=== PATIENT | female | born 1940 | race Caucasian/White ===

== ENCOUNTER → 2016-08-28 | Outpatient (CLI) | payer BC ==
[~2016-08-28] MED LIST: ASPI81TA28 PO; CALC600T9 PO; CHOL20005 PO; CLR10 PO; CYAN500T13 PO; ESCI10TA17 PO; FLUT0.0529 INH; IBAN150T7 PO; LOSA50TA6 PO; NTRGSL/4 UT; OMEP10CA2 PO; PRAV20TA PO; TRET0.027 TOP; ZOLP5TAB PO
[2016-08-28 09:40] LABS: BASO % 0.6 %; BASO ABS # 0.03 K/uL (0-0.2); COMPLETE YES; EOS % 2.4 %; HEMATOCRIT 38.8 % (37-47); LYMPH % 23.1 %; LYMPH ABS # 1.08 K/uL (1.2-3.4); MEAN CELL VOLUME 92.6 fL (80-100); MEAN CORPUSCULAR HEMOGLOBIN 30.5 pg (25-34); MEAN PLATELET VOLUME 10.2 fL (7.4-10.4); MONO % 9.6 %; NEUT % 64.3 %; PLATELET COUNT 240 K/uL (130-400); RED BLOOD COUNT 4.19 M/uL (4.2-5.4); WHITE BLOOD COUNT 4.67 K/uL (4.8-10.8)
[2016-08-28 10:10] LABS: BLOOD UREA NITROGEN 19 mg/dl (7-18); BUN/CREATININE RATIO 25.3 (10-20); CALCIUM 9.3 mg/dl (8.5-10.1); CARBON DIOXIDE 31 mmol/L (21-32); CHLORIDE 109 mmol/L (98-107); CHOLESTEROL 164 mg/dl (0-200); CREATININE 0.75 mg/dl (0.60-1.20); GLUCOSE 86 mg/dl (70-99); POTASSIUM 4.3 mmol/L (3.5-5.1); SODIUM 146 mmol/L (136-145)
[2016-08-28 10:13] LABS: CHOLESTEROL/HDL RATIO 2.7; HDL CHOLESTEROL 60 mg/dl; LDL CHOLESTEROL CALCULATED 88 mg/dl; TRIGLYCERIDES 79 mg/dl (0-150); VERY LOW DENSITY LIPOPROT CALC 16 mg/dl
== END | disposition home or self-care (01) ==
LOC: C.LAB1850 08:08
PROVIDERS: ATTEND Internal Medicine
DX: E55.9 Vitamin D deficiency, unspecified (principal); K21.9 Gastro-esophageal reflux disease without esophagitis; E78.5 Hyperlipidemia, unspecified; I10 Essential (primary) hypertension

== ENCOUNTER → 2017-02-07 | Outpatient (CLI) | payer BC ==
--- NOTE | 2017-02-07 11:26 | DIAGNOSTIC IMAGING REPORT ---
LEFT ANKLE MIN 3 VIEWS ROUTINE HISTORY: 76 years-old Female M25.572 Ankle pain, left acute left ankle pain with injury 10 days prior. Initial exam. COMPARISON: None available TECHNIQUE: 3 views of the left ankle. Bones are mildly demineralized. FINDINGS: No acute fracture or dislocation. Moderate spurring involves the plantar surface of the calcaneus. Mild dorsal spurring of the mid foot is noted. Soft tissues are within normal limits without opaque foreign body. Mild soft tissue swelling is noted about the ankle. IMPRESSION: 1. Mild soft tissue swelling about the ankle without acute fracture. 2. Moderate enthesopathy of the plantar calcaneus. The above report was generated using voice recognition software. It may contain grammatical, syntax or spelling errors. Electronically signed by: Solomon Fonseca M.D. 02/07/2017 11:25 AM Dictated Date/Time: 02/07/2017 11:23 AM
== END | disposition home or self-care (01) ==
LOC: C.RAD 11:07
PROVIDERS: ATTEND Internal Medicine
DX: M77.32 Calcaneal spur, left foot (principal); M25.572 Pain in left ankle and joints of left foot

== ENCOUNTER → 2017-02-26 | Outpatient (CLI) | payer BC ==
[2017-02-26 09:36] LABS: BASO % 0.5 %; BASO ABS # 0.02 K/uL (0-0.2); COMPLETE YES; EOS % 2.3 %; HEMATOCRIT 40.2 % (37-47); IG% 0.2 %; LYMPH % 25.5 %; LYMPH ABS # 1.09 K/uL (1.2-3.4); MEAN CELL VOLUME 94.4 fL (80-100); MEAN CORPUSCULAR HEMOGLOBIN 31.5 pg (25-34); MEAN CORPUSCULAR HGB CONC 33.3 g/dl (32-36); MEAN PLATELET VOLUME 10.6 fL (7.4-10.4); MONO % 12.2 %; NEUT % 59.3 %; PLATELET COUNT 212 K/uL (130-400); RED BLOOD COUNT 4.26 M/uL (4.2-5.4); WHITE BLOOD COUNT 4.27 K/uL (4.8-10.8)
[2017-02-26 09:53] LABS: ALT/SGPT 22 U/L (12-78); AST/SGOT 15 U/L (15-37); BLOOD UREA NITROGEN 18 mg/dl (7-18); BUN/CREATININE RATIO 23.3 (10-20); CALCIUM 9.9 mg/dl (8.5-10.1); CARBON DIOXIDE 29 mmol/L (21-32); CHLORIDE 108 mmol/L (98-107); CHOLESTEROL 162 mg/dl (0-200); CREATININE 0.75 mg/dl (0.60-1.20); GLUCOSE 99 mg/dl (70-99); POTASSIUM 4.4 mmol/L (3.5-5.1); SODIUM 141 mmol/L (136-145); TRIGLYCERIDES 57 mg/dl (0-150); VERY LOW DENSITY LIPOPROT CALC 11 mg/dl
[2017-02-26 09:56] LABS: CHOLESTEROL/HDL RATIO 2.5; HDL CHOLESTEROL 66 mg/dl; LDL CHOLESTEROL CALCULATED 85 mg/dl
== END | disposition home or self-care (01) ==
LOC: C.LAB1850 08:20
PROVIDERS: ATTEND Internal Medicine
DX: E78.5 Hyperlipidemia, unspecified (principal); I10 Essential (primary) hypertension; D72.819 Decreased white blood cell count, unspecified

== ENCOUNTER → 2017-03-10 | Outpatient (CLI) | payer BC ==
--- NOTE | 2017-03-11 08:13 | MAMMOGRAPHY REPORT ---
BILATERAL DIGITAL SCREENING MAMMOGRAM WITH CAD: 03/10/2017 CLINICAL HISTORY: Routine screening. Patient has no complaints. TECHNIQUE: Bilateral CC, MLO and left exaggerated lateral CC views were obtained. Current study was also evaluated with a Computer Aided Detection (CAD) system. COMPARISON: Comparison is made to exams dated: 03/04/2016 mammogram, 02/27/2015 mammogram, 02/24/2014 m ammogram, 02/23/2013 mammogram, 02/18/2012 mammogram, and 11/27/2010 mammogram - [facility] enter. BREAST COMPOSITION: There are scattered areas of fibroglandular density in both breasts. FINDINGS: There are stable asymmetries in the left breast. No new suspicious mass, architectural dis tortion or cluster of microcalcifications is seen. IMPRESSION: ACR BI-RADS CATEGORY 1: NEGATIVE There is no mammographic evidence of malignancy. A 1 year screening mammogram is recommended. The pa tient will receive written notification of the results. Approximately 10% of breast cancers are not detected with mammography. A negative mammographic report should not delay biopsy if a clinically suggestive mass is present. Sana Whitman M.D. ay/:03/10/2017 15:52:24 Sheriff'S Officer: Liberty BAIRD(Raoul)([place]vin)([place]), [facility] letter sent: Normal 1/2 BI-RADS Code: ACR BI-RADS Category 1: Negative
== END | disposition home or self-care (01) ==
LOC: C.MAMM 11:21
PROVIDERS: ATTEND Internal Medicine
DX: Z12.31 Encounter for screening mammogram for malignant neoplasm of breast (principal)

== ENCOUNTER → 2017-08-21 | Outpatient (CLI) | payer BC ==
[2017-08-21 09:39] LABS: HEMATOCRIT 37.3 % (37-47); HEMOGLOBIN 12.8 g/dL (12.0-16.0); MEAN CELL VOLUME 91.2 fL (80-100); MEAN CORPUSCULAR HEMOGLOBIN 31.3 pg (25-34); MEAN CORPUSCULAR HGB CONC 34.3 g/dl (32-36); MEAN PLATELET VOLUME 10.1 fL (7.4-10.4); PLATELET COUNT 215 K/uL (130-400); RED CELL DISTRIBUTION WIDTH CV 12.8 % (11.5-14.5); RED CELL DISTRIBUTION WIDTH SD 42.2 fL (36.4-46.3); WHITE BLOOD COUNT 4.31 K/uL (4.8-10.8)
[2017-08-21 10:42] LABS: BLOOD UREA NITROGEN 20 mg/dl (7-18); CARBON DIOXIDE 27 mmol/L (21-32); CREATININE 0.79 mg/dl (0.60-1.20); GLUCOSE 95 mg/dl (70-99); POTASSIUM 4.2 mmol/L (3.5-5.1); SODIUM 141 mmol/L (136-145)
[2017-08-21 10:43] LABS: ALT/SGPT 20 U/L (12-78); AST/SGOT 14 U/L (15-37); CALCIUM 9.8 mg/dl (8.5-10.1)
[2017-08-21 10:46] LABS: CHOLESTEROL 157 mg/dl (0-200); LDL CHOLESTEROL CALCULATED 79 mg/dl
== END | disposition home or self-care (01) ==
LOC: C.LAB1850 08:46
PROVIDERS: ATTEND Internal Medicine
DX: E78.5 Hyperlipidemia, unspecified (principal); D72.819 Decreased white blood cell count, unspecified; E55.9 Vitamin D deficiency, unspecified; N20.0 Calculus of kidney

== ENCOUNTER → 2017-09-21 | Outpatient (CLI) | payer BC ==
--- NOTE | 2017-09-21 11:11 | DIAGNOSTIC IMAGING REPORT ---
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 This most likely represents a mid left ureteral calculus. It measures 6 x 4 mm. Pre-existing small calcification medial and lateral to the sacrum on the left unchanged in the prior study. Bowel pattern is nonobstructive. No major calcifications within the kidneys within limitations of overlying bowel content. IMPRESSION: 1. Interval calcification overlying the mid left ureter most likely representing a ureteral calculus. 2. This measures 6 x 4 mm. The above report was generated using voice recognition software. It may contain grammatical, syntax or spelling errors. Electronically signed by: Rick Mercer M.D. 09/21/2017 11:09 AM Dictated Date/Time: 09/21/2017 11:07 AM
== END | disposition home or self-care (01) ==
LOC: C.RADBC 09-18 12:19
PROVIDERS: ATTEND Urology
DX: N20.0 Calculus of kidney (principal)

== ENCOUNTER → 2017-09-30 | Outpatient (CLI) | payer BC ==
[~2017-09-30] MED LIST changes: +FLUT50SP45; +OMEP-331 PO
--- NOTE | 2017-09-30 15:40 | DIAGNOSTIC IMAGING REPORT ---
EXAMINATION: RENAL ULTRASOUND CLINICAL HISTORY: N20.0 NephrolithiasisULTR COMPARISON STUDY: September 01, 2014 FINDINGS: The right kidney measures 9.6 cm. The left kidney measures 9.9 cm. There is moderate left-sided hydronephrosis. There is an equivocal 5 mm lower pole right renal calculus The left ureteral jet was not visualized. The right ureteral jet was identified. IMPRESSION : 1. Moderate left-sided hydronephrosis. Nonvisualization the left ureteral jet. The findings are consistent with a left ureteral obstruction 2. Equivocal 5 mm lower pole right renal calculus Electronically signed by: Benedict Mccormick M.D. 09/30/2017 3:39 PM Dictated Date/Time: 09/30/2017 3:37 PM
[2017-09-30 16:38] LABS: BASO % 0.3 %; BASO ABS # 0.02 K/uL (0-0.2); EOS % 1.5 %; HEMATOCRIT 36.9 % (37-47); HEMOGLOBIN 12.2 g/dL (12.0-16.0); IG# 0.02 K/uL (0.00-0.02); LYMPH % 20.7 %; LYMPH ABS # 1.39 K/uL (1.2-3.4); MEAN CELL VOLUME 92.7 fL (80-100); MEAN CORPUSCULAR HEMOGLOBIN 30.7 pg (25-34); MEAN CORPUSCULAR HGB CONC 33.1 g/dl (32-36); MEAN PLATELET VOLUME 10.1 fL (7.4-10.4); MONO % 10.6 %; MONO ABS # 0.71 K/uL (0.11-0.59); NEUT % 66.6 %; NEUT ABS # 4.47 K/uL (1.4-6.5); PLATELET COUNT 225 K/uL (130-400); RED CELL DISTRIBUTION WIDTH CV 13.2 % (11.5-14.5); WHITE BLOOD COUNT 6.71 K/uL (4.8-10.8)
[2017-09-30 17:01] LABS: BLOOD UREA NITROGEN 20 mg/dl (7-18); CARBON DIOXIDE 30 mmol/L (21-32); CREATININE 0.92 mg/dl (0.60-1.20); POTASSIUM 3.8 mmol/L (3.5-5.1); SODIUM 139 mmol/L (136-145)
== END | disposition home or self-care (01) ==
LOC: C.ULTR 15:02
PROVIDERS: ATTEND Urology
DX: N20.0 Calculus of kidney (principal); N13.30 Unspecified hydronephrosis

== ENCOUNTER → 2017-10-08 | Outpatient (CLI) | payer BC ==
[~2017-10-08] MED LIST changes: -CLR10 PO; -FLUT0.0529 INH; -IBAN150T7 PO; -OMEP10CA2 PO
--- NOTE | 2017-10-08 15:57 | DIAGNOSTIC IMAGING REPORT ---
KUB HISTORY: Follow-up study in a patient with nephrolithiasis N20.0 [id number] COMPARISON: KUB 09/21/2017. FINDINGS: The bowel gas pattern is non-obstructive. Moderate colonic stool volume suggests constipation. There is no organomegaly. 8 x 5 mm calcification of the left central abdomen overlying the L4 left vertebral body is unchanged from comparison. Renal shadows are obscured by bowel gas. No definite nephrolithiasis. No pneumoperitoneum or pneumatosis. No fracture. IMPRESSION: 1. Unchanged positioning of the 8 mm linear calcification of the left central abdomen is suspicious for ureteral calculus. 2. Renal shadows are obscured by bowel gas. No definite nephrolithiasis. 3. Suggested constipation. Electronically signed by: Solomon Fonseca M.D. 10/08/2017 3:56 PM Dictated Date/Time: 10/08/2017 3:53 PM
== END | disposition home or self-care (01) ==
LOC: C.LAB1850 14:59
PROVIDERS: ATTEND Urology
DX: N20.0 Calculus of kidney (principal)

== ENCOUNTER → 2017-10-08 | Outpatient (CLI) | payer BC ==
[2017-10-08 12:13] LABS: HEMATOCRIT 36.4 % (37-47); MEAN CELL VOLUME 93.1 fL (80-100); MEAN CORPUSCULAR HEMOGLOBIN 30.7 pg (25-34); MEAN PLATELET VOLUME 10.3 fL (7.4-10.4); PLATELET COUNT 208 K/uL (130-400); RED CELL DISTRIBUTION WIDTH CV 13.4 % (11.5-14.5); RED CELL DISTRIBUTION WIDTH SD 45.2 fL (36.4-46.3); WHITE BLOOD COUNT 4.52 K/uL (4.8-10.8)
[2017-10-08 13:17] LABS: ALT/SGPT 21 U/L (12-78); AST/SGOT 14 U/L (15-37); BLOOD UREA NITROGEN 23 mg/dl (7-18); CALCIUM 10.1 mg/dl (8.5-10.1); CARBON DIOXIDE 28 mmol/L (21-32); CREATININE 0.87 mg/dl (0.60-1.20); GLUCOSE 80 mg/dl (70-99); SODIUM 138 mmol/L (136-145)
[2017-10-08 13:20] LABS: CHOLESTEROL 172 mg/dl (0-200); LDL CHOLESTEROL CALCULATED 95 mg/dl
== END | disposition home or self-care (01) ==
LOC: C.CPL 10:53
PROVIDERS: ATTEND Urology
DX: N20.0 Calculus of kidney (principal)

== ENCOUNTER → 2017-10-09 | Day surgery (SDC) | payer BC ==
[2017-10-01 11:50] VITALS: Ht 156.2 cm; Wt 63.6 kg
--- NOTE | 2017-10-08 11:42 | DIAGNOSTIC IMAGING REPORT ---
CHEST 2 VIEWS ROUTINE HISTORY: 77 years-old Female NEPHROLITHIASIS 592.0 N20.0 preoperative exam. No acute chest complaints COMPARISON: None available TECHNIQUE: PA and lateral views of the chest FINDINGS: Cardiac mediastinal and hilar silhouettes are within normal limits. No pneumothorax, pleural effusion, focal airspace consolidation or overt pulmonary edema. Degenerative changes of the shoulders and spine. IMPRESSION: No acute process. The above report was generated using voice recognition software. It may contain grammatical, syntax or spelling errors. Electronically signed by: Solomon Fonseca M.D. 10/08/2017 11:40 AM Dictated Date/Time: 10/08/2017 11:39 AM
[~2017-10-09] VITALS: Ht 156.2 cm; Wt 63.6 kg
[~2017-10-09] MED LIST changes: +CIPROFLOXACIN 400MG / D5W IV SCH; +LACTATED RINGER'S 1000ML 1,000 ML IV SCH
== END | disposition home or self-care (01) ==
LOC: C.PAT 12:43 → EDSTATUS 10-16 07:45
PROVIDERS: ATTEND Urology
DX: N20.1 Calculus of ureter (principal); Z53.9 Procedure and treatment not carried out, unspecified reason

== ENCOUNTER → 2017-10-15 | Outpatient (CLI) | payer BC ==
[~2017-10-15] MED LIST changes: -CIPROFLOXACIN 400MG / D5W IV SCH; -LACTATED RINGER'S 1000ML 1,000 ML IV SCH
--- NOTE | 2017-10-15 18:39 | DIAGNOSTIC IMAGING REPORT ---
KUB HISTORY: Follow-up study in a patient with left-sided ureteral calculus. Preoperative exam N20.0 Nephrolithiasis COMPARISON: KUB 10/08/2017 FINDINGS: The bowel gas pattern is non-obstructive. There is no organomegaly. There is slight caudal progression of the 8 mm calculus of the left ureter, now at the level of the left L5 transverse process. No additional nephrolithiasis or ureteral calculi identified. Moderate stool volume throughout the colon suggests constipation. Degenerative changes of the hips and spine. No pneumoperitoneum or pneumatosis. No fracture. IMPRESSION: Slight caudal progression of the 8 mm left ureteral calculus, now at the level of the L5 left transverse process. Electronically signed by: Solomon Fonseca M.D. 10/15/2017 6:38 PM Dictated Date/Time: 10/15/2017 6:36 PM
== END | disposition home or self-care (01) ==
LOC: C.RAD 18:11
PROVIDERS: ATTEND Urology
DX: N20.1 Calculus of ureter (principal)

== ENCOUNTER → 2017-10-16 | Day surgery (SDC) | payer BC ==
[2017-10-15 08:44] VITALS: Ht 156.2 cm; Wt 63.6 kg
[~2017-10-16] VITALS: Ht 156.2 cm; Wt 63.6 kg
[~2017-10-16] MED LIST changes: +ATROPINE SULFATE 0.1 MG/ML 5ML SYR IV PRN; +CIPROFLOXACIN 400MG / D5W IV SCH; +EpHEDrine SULFATE 50MG/5ML SYR ONE; +EpHEDrine SULFATE INJ 50 MG/ML AMP IV PRN; +FENTANYL CITRATE INJ 50 MCG/1 ML 2 ML VIAL IV PRN; +FENTANYL CITRATE INJ 50 MCG/1 ML 2 ML VIAL ONE; +LACTATED RINGER'S 1000ML 1,000 ML IV SCH; +LIDOCAINE HCL 2% 2 ML VIAL (20MG/ML) ONE; +ONDANSETRON INJ 2 MG/ML 2 ML VIAL ONE; +OXYCODONE/ACETAMINOPHEN 5-325 TAB PO PRN; +PROPOFOL IV EMULSION 10 MG/ML 20 ML VIAL ONE
--- NOTE | 2017-10-16 09:19 | History & Physical Bridge Note ---
H&P Re-Evaluation Bridge Note: I have examined the patient, reviewed the History & Physical and in the interval since the performance of the History & Physical I have noted the following changes of clinical significance: L ureteral stone for ESWL.
--- NOTE | 2017-10-16 09:55 | Discharge Instructions ---
Discharge Instructions Date of Service October 16, 2017. Admission Reason for Admission: Nephrolithiasis Discharge Discharge Diagnosis / Problem: L ureteral stone s/p ESWL Discharge Goals Goal(s): Decrease discomfort, Improve function, Improve disease control, Therapeutic intervention Activity Recommendations Activity Limitations: as noted below Lifting Limitations: no more than 25 pounds, gradually increase as tolerated Exercise/Sports Limitations: rest today, gradually increase as tolerated May Resume Sexual Activity: when tolerated Shower/Bathe: no limitations Driving or Machine Use: resume 1 day after discharge . Instructions / Follow-Up Instructions / Follow-Up Follow-up as scheduled in office with KUB Xray before visit. Current Hospital Diet Patient's current hospital diet: Discharge Diet Recommended Diet: Regular Diet (good fluid intake) Procedures Procedures Performed: Left ureteral extracorporeal shockwave lithotripsy Pending Studies Studies pending at discharge: yes List of pending studies: KUB Xray before visit Laboratory Results Lipid Panel Test 10/08/17 11:07 Range/Units Triglycerides Level 101 0-150 mg/dl Cholesterol Level 172 0-200 mg/dl HDL Cholesterol 57 mg/dl Cholesterol/HDL Ratio 3.0 LDL Cholesterol, Calculated 95 mg/dl Medical Emergencies . Who to Call and When: Medical Emergencies: If at any time you feel your situation is an emergency, please call 911 immediately. . Non-Emergent Contact Non-Emergency issues call your: Urologist Call Non-Emergent contact if: you have a fever, temperature is above 101, your pain is not controlled, your pain is worsening, your pain is unusual for you, your pain is concerning you, you have any medication questions . . "Provider Documentation" section prepared by Jesse Perry. .
--- NOTE | 2017-10-16 10:51 | [facility] Post Operative Brief Note ---
Immediate Operative Summary Operative Date October 16, 2017. Pre-Operative Diagnosis Left ureteral calculi Post-Operative Diagnosis Same as pre-op Procedure(s) Performed Left Extracorporeal Shock Wave Lithotripsy - Ureteral Surgeon Dr. Cindy Perry Speech Language Assistant Surgeon(s) None Estimated Blood Loss 0 mL Findings Consistent with Post-Op Diagnosis Specimens None Drains None Anesthesia Type General Complication(s) none Disposition Accompanied Pt To Recover: no Disposition: Recovery Room / PACU
--- NOTE | 2017-10-16 11:24 | OPERATIVE REPORT ---
DATE OF OPERATION: 10/16/2017 PREOPERATIVE DIAGNOSIS: Left mid ureteral stone. POSTOPERATIVE DIAGNOSIS: Left mid ureteral stone. PROCEDURE: Left ureteral extracorporeal shockwave lithotripsy. SURGEON: Jesse Perry M.D. RETIREMENT VILLAGE MANAGER: None. ANESTHESIA: General anesthesia with laryngeal mask. COMPLICATIONS: None. FINDINGS: Excellent stone fragmentation on fluoroscopy. DETAILS OF PROCEDURE: The patient was brought to the litho suite. He was correctly identified and the stone was visualized on his most recent x-rays. After the correct time out was performed the patient was positioned over the therapy head. An adequate level of anesthesia was administered. The extracorporeal shockwave lithotripsy treatment was then commenced. Please see the [facility] sheet for complete treatment summary. After completion of the procedure the patient was taken to the recovery room in stable condition. I attest to the content of the Intraoperative Record and any orders documented therein. Any exception s are noted below.
[2017-10-16 11:53] VITALS: TEMP 36.3
[2017-10-16 12:15] VITALS: BP 121/78; PULSE 69; O2SAT 98
== END | disposition home or self-care (01) ==
LOC: X.SURG 08:47
PROVIDERS: ATTEND Urology
DX: N20.1 Calculus of ureter (principal); R31.0 Gross hematuria; K21.9 Gastro-esophageal reflux disease without esophagitis; F06.4 Anxiety disorder due to known physiological condition; E55.9 Vitamin D deficiency, unspecified; E78.5 Hyperlipidemia, unspecified; I10 Essential (primary) hypertension; M85.80 Other specified disorders of bone density and structure, unspecified site; Z87.442 Personal history of urinary calculi; Z79.82 Long term (current) use of aspirin; Z87.891 Personal history of nicotine dependence

== ENCOUNTER → 2017-10-28 | Outpatient (CLI) | payer BC ==
[~2017-10-28] MED LIST changes: -ATROPINE SULFATE 0.1 MG/ML 5ML SYR IV PRN; -CIPROFLOXACIN 400MG / D5W IV SCH; -EpHEDrine SULFATE 50MG/5ML SYR ONE; -EpHEDrine SULFATE INJ 50 MG/ML AMP IV PRN; -FENTANYL CITRATE INJ 50 MCG/1 ML 2 ML VIAL IV PRN; -FENTANYL CITRATE INJ 50 MCG/1 ML 2 ML VIAL ONE; -LACTATED RINGER'S 1000ML 1,000 ML IV SCH; -LIDOCAINE HCL 2% 2 ML VIAL (20MG/ML) ONE; -ONDANSETRON INJ 2 MG/ML 2 ML VIAL ONE; -OXYCODONE/ACETAMINOPHEN 5-325 TAB PO PRN; -PROPOFOL IV EMULSION 10 MG/ML 20 ML VIAL ONE
--- NOTE | 2017-10-28 13:42 | DIAGNOSTIC IMAGING REPORT ---
KUB CLINICAL HISTORY: Nephrolithiasis. COMPARISON STUDY: KUB October 15, 2017. FINDINGS: There is a possible 6 mm left renal calculus. The left ureteral calculus shown on KUB of October 15, 2017 is not visualized on this exam. The bowel gas pattern is normal. IMPRESSION: 1. Nonvisualization of the left ureteral calculus shown on prior KUB. 2. Possible 6 mm left renal calculus. Electronically signed by: Cricket Larsen M.D. 10/28/2017 1:40 PM Dictated Date/Time: 10/28/2017 1:35 PM
== END | disposition home or self-care (01) ==
LOC: C.RAD1850 13:15
PROVIDERS: ATTEND Urology
DX: N20.0 Calculus of kidney (principal)

== ENCOUNTER → 2017-10-28 | Outpatient (CLI) | payer BC | END | disposition home or self-care (01) | LOC: C.LABSPEC 16:52 | PROVIDERS: ATTEND Urology | DX: N20.0 Calculus of kidney (principal) ==

== ENCOUNTER 2021-12-23 09:29 | Observation (INO) ==
[2021-12-23] MEDS ORDERED: SODIUM CHLORIDE 0.9% 1000ML 1,000 ML IV ONE (09:38)
[2021-12-23 10:12] LABS: Basophils # (auto) 0.02 K/uL (0-0.2); Basophils % (auto) 0.4 %; Eosinophils # (auto) 0.09 K/uL (0-0.50); Eosinophils % (auto) 1.7 %; Hematocrit (blood only) 37.2 % (34.1-44.9); Hemoglobin 12.3 g/dl (12.0-16.0); Immature Granulocytes # (auto) 0.03 K/uL (0.00-0.02); Immature Granulocytes % (auto) 0.6 %; Lymphocytes # (auto) 0.88 K/uL (1.2-3.4); Lymphocytes % (auto) 16.4 %; Mean Corpuscular Hemoglobin 32.5 pg (25.0-34.0); Mean Corpuscular Hgb Conc 33.1 g/dL (32.0-36.0); Mean Corpuscular Volume 98.4 fL (80.0-100.0); Mean Platelet Volume 9.7 fL (9.4-12.3); Monocytes # (auto) 0.49 K/uL (0.24-0.82); Monocytes % (auto) 9.1 %; Neutrophils # (auto) 3.87 K/uL (1.4-6.5); Neutrophils % (auto) 71.8 %; Platelet Count 269 K/uL (130-400); Red Blood Count 3.78 M/uL (3.93-5.22); White Blood Count 5.38 K/ul (4.8-10.8)
--- NOTE | 2021-12-23 10:18 | XRay Report ---
XR chest 1V portable CLINICAL HISTORY: Chest Pain TECHNIQUE: Single frontal radiograph of the chest was obtained. Comparison: None available at the time of this dictation. FINDINGS: No lines and tubes are seen. The cardiomediastinal silhouette is normal. The lungs are clear. No evid ence of pleural effusion or pneumothorax. IMPRESSION: No acute chest disease. ACT 112: Negative or not required by law. Electronically signed by: Jim Huerta M.D. 12/23/2021 10:17 AM
[2021-12-23 10:38] LABS: Troponin I High Sensitivity 4.6 pg/ml (0-14)
[2021-12-23 10:40] LABS: Albumin Globulin Ratio 1.5 (0.9-2); BUN Creatinine Ratio 23.1 (10-20); Bilirubin,Total 0.4 mg/dl (0.2-1.0); Creatinine Clr Calc Pharmacy 48.6 ml/min; Est GFR (African American) 82.1 ml/min; Est GFR (Non-African American) 70.8 ml/min; Globulin 2.6 gm/dl (2.5-4.0); Phosphorus 2.1 mg/dl (2.5-4.9); Potassium 3.8 mmol/L (3.5-5.1); Total Protein 6.6 gm/dl (6.0-8.3)
[2021-12-23] MEDS ORDERED: OPTIRAY 320 125ml IV ONE (11:15)
--- NOTE | 2021-12-23 11:20 | CT Scan Report ---
HEAD CT NONCONTRAST CT DOSE: 988.58 mGy.cm HISTORY: Right facial droop, left upper extremity weakness/ataxia TECHNIQUE: Multiaxial CT images of the head were performed without the use of intravenous contrast. A utomated exposure control was utilized for this study. A dose lowering technique was utilized adheri ng to the principles of ALARA. Comparison: None. Findings: The paranasal sinuses and mastoid air cells are clear. The calvarium and skull base are int act. There is no mass, hematoma, midline shift, acute infarct. White matter hypodensity is nonspecifi c but suggestive of microvascular ischemic change. The ventricles and sulci demonstrate mild age-rela liana involutional changes. Impression: No acute intracranial abnormality. Atrophy and microvascular ischemic changes. ACT 112: Negative or not required by law. Electronically signed by: Devan Huang M.D. 12/23/2021 11:19 AM
--- NOTE | 2021-12-23 11:24 | CT Scan Report ---
HEAD CTA HISTORY: Right facial droop, left upper extremity weakness/ataxia TECHNIQUE: Multiaxial CT images of the head were following the intravenous administration of contrast to evaluate the major cerebral vessels. Maximum intensity projection images were also obtained. A d ose lowering technique was utilized adhering to the principles of ALARA. COMPARISON: None. FINDINGS: There is no mass, hematoma, midline shift, or acute infarct. Visualized intracranial sport intern al carotid arteries, distal vertebral arteries, and basilar artery are widely patent. There is no sig nificant stenosis or occlusion seen within the bilateral ACAs, MCAs, or pick and shovel worker. Hypoplastic distal vert ebral arteries and basilar artery. Bilateral posterior circulations are noted. These are consid ered to be normal variants. The major dural venous sinuses are patent. 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 There are small aneurysms at the origins of the bilateral posterior co mmunicating arteries measuring 2 mm on the left (image 93) and 1 mm on the right (image 87). IMPRESSION: 1. No significant stenosis or occlusion within the [place]. 2. 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 ACT 112: Negative or not required by law. Electronically signed by: Devan Huang M.D. 12/23/2021 11:23 AM
--- NOTE | 2021-12-23 11:24 | CT Scan Report ---
CT angio neck with con CLINICAL HISTORY: Right facial droop, LUE weakness/ataxia COMPARISON STUDY: No previous studies for comparison. CT DOSE: TECHNIQUE: CT Angio of the neck was performed.followed by image post processing with coronal, and sa gittal MIP reformats.. Stenosis assessment by NASCET criteria. Contrast Volume: Optiray 320, 120 ml FINDINGS: Vascular findings: Right common carotid artery: Patent without significant stenosis. There is very minimal atherosclerot ic calcification of the carotid bulb. Right internal carotid artery: Patent without significant stenosis. Right vertebral artery: Patent without significant stenosis. The right vertebral artery is dominant w hen compared to the left. Left common carotid artery: Patent without significant stenosis. There is very minimal atheroscleroti c calcification of the carotid bulb. Left internal carotid artery: Patent without significant stenosis. Left vertebral artery: Patent without significant stenosis. Nonvascular findings: The parotid and submandibular salivary glands appear normal. There is no enlarged cervical adenopathy noted. The airway appears patent. The thyroid gland appears within normal limits. The lung apices ap pear within normal limits. Impression: 1. Essentially negative CT angiogram of the neck with contrast. ACT 112: Negative or not required by law. Electronically signed by: Thiago Simmons M.D. 12/23/2021 11:22 AM
[2021-12-23] MEDS ORDERED: POT PHOSPHATE MONOBASIC W/ SOD TAB PO STA (12:22)
--- NOTE | 2021-12-23 12:33 | Emergency Department Note ---
Impression & Plan Weakness of left upper extremity, Impairment of balance, Hypophosphatemia ED Provider Note NAME: NIRALI LOPEZ AGE: 81 SEX: F ARRIVES VIA: Walk-In INFORMANT: Patient ED PROVIDER(S): Narciso Suggs MD CHIEF COMPLAINT: Arm weakness, imbalance to right PLAN: Disposition: Admit MEDICAL DECISION MAKING: The patient a pleasant 81-year-old woman with a past medical history of osteopenia, nephrolithiasis, hypertension, hyperlipidemia, anxiety who presents to the emergency department for evaluation of left upper extremity weakness and difficulty with ambulation where she leans to the right that began on Thursday. This occurs in the setting of having symptoms of acute aphasia that she reports happened approximately a month ago but resolved after a couple of hours. She attributed this episode to a migraine which she gets sometimes but has never had loss of speech. She reports she did not follow-up with her doctor because she was leaving for a family reunion in [place]. She reports that for members did not notice anything different though admits that many have not seen her in some time. Her arm and balance issues began on Thursday but did not want to go to the hospital in [place] and preferred to wait until she returned home and arrived last night from her trip. She denies any fevers, chills, cough, congestion, GI or symptoms. Of note, the patient does have a mild left lower facial droop which the patient is confident she has had for years but admits that she was never told what it could be. On arrival the patient is fatigued appearing but no acute distress, afebrile stable vital signs. She appears clinically dry. She exhibits mild weakness of bilateral upper extremities however left greater than right with the left upper extremity showing mild past-pointing on [id number]. Her face does have a mild right lower facial droop at rest and when attempting to purse lips and blow air, there is air leak out of the right side of her mouth. She has no overt aphasia. She has normal strength in bilateral lower extremities. EKG without overt acute ischemia. WBC, H/H and platelets within normal limits. Chemistry without metabolic acidosis. Electrolytes and LFTs without significant abnormality. High-sensitivity troponin 4.6, within normal limits. Lipase not elevated. COVID-19 RNA, CRISTINO test was negative. CT of the head negative for acute stroke. Note is made of microvascular ischemic changes. CT of the head negative for severe narrowing or occlusion of large vessels. 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 Upon reevaluation the patient did feel somewhat improved however still with weakness of the left upper extremity with mild ataxia of the left upper extremity. Patient agrees with plan for admission for further evaluation of possible stroke. Case was discussed with Dr. Bruner [facility] hospitalist, who will evaluate the patient for admission. Triage Nursing notes reviewed and agree them. Prior medical records reviewed Vital Signs: reviewed and remarkable for no significant abnormalities Differential diagnosis: Infection, dehydration, metabolic abnormality, hypo/hyperglycemia, electrolyte disturbance, anemia, hypoxia, cardiac sources, intracerebral event, toxicologic, neurologic, as well as other pathologies. ER treatment provided: See below. Diagnostics interpreted by me: ECG: Normal sinus rhythm, 75 bpm, no ectopy, no overt ST elevation or depression, QTC 426, QRS 86 Cardiac Monitoring: An order for continuous cardiac monitoring was placed and demonstrated Normal sinus rhythm, 75 bpm, no ectopy. Laboratory studies: See below Imaging studies: See below Consultation(s): Case was discussed with Dr. Bruner, [facility] hospitalist, who will evaluate the patient for admission. HPI: The patient a pleasant 81-year-old woman with a past medical history of osteopenia, nephrolithiasis, hypertension, hyperlipidemia, anxiety who presents to the emergency department for evaluation of left upper extremity weakness and difficulty with ambulation where she leans to the right that began on Thursday. This occurs in the setting of having symptoms of acute aphasia that she reports happened approximately a month ago but resolved after a couple of hours. She attributed this episode to a migraine which she gets sometimes but has never had loss of speech. She reports she did not follow-up with her doctor because she was leaving for a family reunion in [place]. She reports that for members did no t notice anything different though admits that many have not seen her in some time. Her arm and balance issues began on Thursday but did not want to go to the hospital in [place] and preferred to wait until she returned home and arrived last night from her trip. She denies any fevers, chills, cough, congestion, GI or symptoms. Of note, the patient does have a mild left lower facial droop which the patient is confident she has had for years but admits that she was never told what it could be. ROS: See above HPI for pertinent positives & negatives. A total of 10 systems reviewed and were otherwise negative. VITALS:See Below PHYSICAL EXAMINATION: GENERAL: Awake, alert, fatigued-appearing, in no distress HENT: Normocephalic, atraumatic. Oropharynx with dry mucous membranes and otherwise unremarkable. EYES: Normal conjunctiva. Sclera non-icteric. EOMI. No nystamgus. PEARRL. NECK: Supple. No nuchal rigidity. FROM. No JVD. RESPIRATORY: Clear to auscultation. CARDIAC: Regular rate, normal rhythm. Extremities warm and well perfused. Pulses equal. ABDOMEN: Soft, non-distended. No tenderness to palpation. No rebound or guarding. No masses. RECTAL: Deferred. MUSCULOSKELETAL: Chest examination reveals no tenderness. The back is symmetrical on inspection without obvious abnormality. There is no CVA tendernes s to palpation. No joint edema. LOWER EXTREMITIES: Calves are equal size bilaterally and non-tender. No edema. No discoloration. NEURO: Mild weakness of bilateral upper extremities however left greater than right with the left upper extremity showing mild past-pointing on [id number]. Her face does have a mild right lower facial droop at rest and when attempting to purse lips and blow air, there is air leak out of the right side of her mouth. She has no overt aphasia. She has normal strength in bilateral lower extremities. SKIN: No rash or jaundice noted. Narciso Suggs MD Past Med/Surg History Medical History (Updated 12/23/21 @ 21:33 by Narciso Suggs MD) Anxiety Greater trochanteric bursitis of right hip History of actinic keratosis History of diverticulosis History of gross hematuria Hyperlipidemia Hypertension S/P extracorporeal shock wave therapy TIA (transient ischemic attack) Surgical History H/O colonoscopy H/O dilation and curettage H/O shoulder surgery H/O wisdom tooth extraction H/O: section History of excision of lesion History of tonsillectomy and adenoidectomy History of tubal ligation Family History Mother Breast cancer Stroke Grandmother Colon cancer Sister Ovarian cancer Father CHF (congestive heart failure) Denies family history of Prostate cancer Myocardial infarction Social History Smoking Status: Never smoker packs per day: 0.5; Years Smoked: 13; Second Hand Exposure: No; Hx Alcohol Use: No Hx Substance Use: No Preferred Language: Frisian Communication Ability: Effective Visual Impairment: No Limitations Hearing Ability: Normal Trouble Shooting Mechanic Required: No Beliefs That Will Affect Care: None marital status: / Current Living Situation: Alone current occupational status: retired Feels Safe at Home: Yes Childhood Exposure to Second-Hand Smoke: No Dental Care, Regularly: Yes Physical Activity Frequency: 3-4 Times per Week Seatbelt Use: always Sunscreen Use: Yes Assistive Devices: None Allergies Allergies Allergy/AdvReac Type Severity Reaction Status Date / Time pollen extracts Allergy Unknown Verified 08/29/21 10:28 Home Meds Home Medications Medication Instructions Recorded Confirmed aspirin 81 mg tablet 81 mg PO DAILY 01/17/19 10/30/21 cholecalciferol (vitamin D3) 25 1,000 units PO BID 01/17/19 10/30/21 mcg (1,000 unit) capsule cyanocobalamin (vitamin B-12) 3,000 mcg sublingual DAILY 01/17/19 10/30/21 3,000 mcg sublingual tablet naproxen sodium 220 mg tablet 220 mg PO UD PRN pain 01/17/19 10/30/21 Previous Rx's Medication Instructions Recorded nitroglycerin 0.4 mg sublingual 0.4 mg sublingual Q5M PRN chest 09/25/20 tablet pain #30 tabs fluticasone propionate 50 1 spray intranasal BID #1 g 01/07/21 mcg/actuation nasal spray,suspension losartan 50 mg tablet 50 mg PO DAILY #90 tabs 06/03/21 pravastatin 20 mg tablet 20 mg PO DAILY #90 tabs 06/03/21 escitalopram oxalate 10 mg tablet 15 mg PO DAILY #135 tabs 07/01/21 zolpidem 5 mg tablet 5 mg PO DAILY #90 tabs 09/30/21 Results & Data (ED) Vital Signs Vital Signs - 24 hr 12/23/21 09:33 12/23/21 09:38 12/23/21 10:15 Temperature 36.9 C Temperature Source Temporal Artery Scan Pulse Rate 94 H 82 77 Pulse Rate from SpO2 Sensor Pulse Rhythm Regular Respiratory Rate 18 20 15 Respiratory Effort / Characteristics Non-Labored Spontaneous Respiratory Depth Normal Respiratory Pattern Regular Blood Pressure 121/79 Blood Pressure Mean 93 Blood Pressure Position Sitting Pulse Oximetry 97 97 Oxygen Delivery Method Room Air Room Air Sepsis Recent Fever Within 48 Hours No Sepsis New/Unexplained Change in Mental Status No Sepsis Action Taken by Nursing No Action Required 12/23/21 10:15 12/23/21 10:30 12/23/21 10:30 Temperature Temperature Source Pulse Rate 73 Pulse Rate from SpO2 Sensor 73 Pulse Rhythm Respiratory Rate 20 Respiratory Effort / Characteristics Respiratory Depth Respiratory Pattern Blood Pressure 147/70 H 122/78 Blood Pressure Mean 95 92 Blood Pressure Position Pulse Oximetry 95 Oxygen Delivery Method Sepsis Recent Fever Within 48 Hours Sepsis New/Unexplained Change in Mental Status Sepsis Action Taken by Nursing Laboratory Data Attestation: I reviewed the patient's lab results. Result diagrams: 12/23/21 09:55 12/23/21 09:55 Lab Results 12/23/21 12/23/21 12/23/21 Range/Units 09:55 09:55 10:40 WBC 5.38 (4.8-10.8) K/ul RBC 3.78 L (3.93-5.22) M/uL Hgb 12.3 (12.0-16.0) g/dl Hct 37.2 (34.1-44.9) % MCV 98.4 (80.0-100.0) fL MCH 32.5 (25.0-34.0) pg MCHC 33.1 (32.0-36.0) g/dL RDW Std Deviation 50.0 H (36.4-46.3) fL RDW Coeff of Donald 14.0 (11.5-14.5) % Plt Count 269 (130-400) K/uL MPV 9.7 (9.4-12.3) fL Immature Gran % (Auto) 0.6 % Neut % (Auto) 71.8 % Lymph % (Auto) 16.4 % [place] % (Auto) 9.1 % Eos % (Auto) 1.7 % Baso % (Auto) 0.4 % Neut # (Auto) 3.87 (1.4-6.5) K/uL Lymph # (Auto) 0.88 L (1.2-3.4) K/uL [place] # (Auto) 0.49 (0.24-0.82) K/uL Eos # (Auto) 0.09 (0-0.50) K/uL Baso # (Auto) 0.02 (0-0.2) K/uL Immature Gran # (Auto) 0.03 H (0.00-0.02) K/uL Sodium 143 (136-145) mmol/L Potassium 3.8 (3.5-5.1) mmol/L Chloride 110 H (98-107) mmol/L Carbon Dioxide 26 (21-32) mmol/L Anion Gap 7 (3-11) BUN 18 (6-23) mg/dl Creatinine 0.78 (0.6-1.2) mg/dl Est Cr Clr Drug Dosing 48.6 ml/min Est GFR ( Amer) 82.1 ml/min Est GFR (Non-Af Amer) 70.8 ml/min BUN/Creatinine Ratio 23.1 H (10-20) Glucose 114 H (70-99(Fasting)) mg/dl Calcium 10.0 (8.5-10.1) mg/dl Phosphorus 2.1 L (2.5-4.9) mg/dl Magnesium 2.0 (1.7-2.4) mg/dl Total Bilirubin 0.4 (0.2-1.0) mg/dl AST 21 (13-39) U/L ALT 18 (7-52) U/L Alkaline Phosphatase 54 (34-104) U/L Troponin I High Sens 4.6 (0-14) pg/ml Total Protein 6.6 (6.0-8.3) gm/dl Albumin 4.0 (3.4-5.0) gm/dl Globulin 2.6 (2.5-4.0) gm/dl Albumin/Globulin Ratio 1.5 (0.9-2) Lipase 28 (11-82) U/L SARS-CoV-2, RNA, NAAT NEGATIVE (NEGATIVE) Administered Medications Heparin Sodium (Porcine) (Heparin Sod 5,000 Unit/0.5 Ml Vial) 5,000 units SQ Q8 NANCY Stop: 01/22/22 14:44 Last Admin: 12/23/21 20:57 Dose: 5,000 units Documented By: Admin: 12/23/21 15:31 Dose: 5,000 units Documented By: [id number] Discontinued Medications Sodium Chloride (Nss 1000ml) 1,000 mls @ 999 mls/hr IV .Q1H1M ONE Stop: 12/23/21 10:38 Last Infusion: 12/23/21 11:28 Dose: 0 mls/hr Documented By: Admin: 12/23/21 10:22 Dose: 999 mls/hr Documented By: MNE Ioversol (Optiray 320 125ml) 120 ml IV ONCE ONE Stop: 12/23/21 11:16 Last Admin: 12/23/21 11:03 Dose: 120 ml Documented By: BRM Potassium Phosphate (Pot Phosphate Monobasic W/ Sod Tab) 2 tab PO NOW STA Stop: 12/23/21 12:23 Last Admin: 12/23/21 12:39 Dose: 2 tab Documented By: KV Imaging Data Radiologist's Impression: Chest X-Ray 12/23/21 09:38 XR chest 1V portable CLINICAL HISTORY: Chest Pain TECHNIQUE: Single frontal radiograph of the chest was obtained. Comparison: None available at the time of this dictation. FINDINGS: No lines and tubes are seen. The cardiomediastinal silhouette is normal. The lungs are clear. No evidence of pleural effusion or pneumothorax. IMPRESSION: No acute chest disease. ACT 112: Negative or not required by law. Electronically signed by: Jim Huerta M.D. 12/23/2021 10:[address] 12/23/21 10:[address] DOSE: 988.58 mGy.cm HISTORY: Right facial droop, left upper extremity weakness/ataxia TECHNIQUE: Multiaxial CT images of the head were performed without the use of intravenous contrast. Automated exposure control was utilized for this study. A dose lowering technique was utilized adhering to the principles of ALARA. Comparison: None. Findings: The paranasal sinuses and mastoid air cells are clear. The calvarium and skull base are intact. There is no mass, hematoma, midline shift, acute infarct. White matter hypodensity is nonspecific but suggestive of microvascular ischemic change. The ventricles and sulci demonstrate mild age-related involutional changes. Impression: No acute intracranial abnormality. Atrophy and microvascular ischemic changes. ACT 112: Negative or not required by law. Electronically signed by: Devan Huang M.D. 12/23/2021 11:19 AM Head CTA 12/23/21 10:18 HEAD CTA HISTORY: Right facial droop, left upper extremity weakness/ataxia TECHNIQUE: Multiaxial CT images of the head were following the intravenous administration of contrast to evaluate the major cerebral vessels. Maximum intensity projection images were also obtained. A dose lowering technique was utilized adhering to the principles of ALARA. COMPARISON: None. FINDINGS: There is no mass, hematoma, midline shift, or acute infarct. Visualized intracranial internal carotid arteries, distal vertebral arteries, and basilar artery are widely patent. There is no significant stenosis or occlusion seen within the bilateral ACAs, MCAs, or head holder. Hypoplastic distal vertebral arteries and basilar artery. Bilateral posterior circulations are noted. These are considered to be normal variants. The major dural venous sinuses are patent. 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 IMPRESSION: 1. No significant stenosis or occlusion within the [place]. 2. 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 ACT 112: Negative or not required by law. Electronically signed by: Devan Huang M.D. 12/23/2021 11:23 AM Neck CTA 12/23/21 10:18 CT angio neck with con CLINICAL HISTORY: Right facial droop, LUE weakness/ataxia COMPARISON STUDY: No previous studies for comparison. CT DOSE: TECHNIQUE: CT Angio of the neck was performed.followed by image post processing with coronal, and sagittal MIP reformats.. Stenosis assessment by NASCET criteria. Contrast Volume: Optiray 320, 120 ml FINDINGS: Vascular findings: Right common carotid artery: Patent without significant stenosis. There is very minimal atherosclerotic calcification of the carotid bulb. Right internal carotid artery: Patent without significant stenosis. Right vertebral artery: Patent without significant stenosis. The right vertebral artery is dominant when compared to the left. Left common carotid artery: Patent without significant stenosis. There is very minimal atherosclerotic calcification of the carotid bulb. Left internal carotid artery: Patent without significant stenosis. Left vertebral artery: Patent without significant stenosis. Nonvascular findings: The parotid and submandibular salivary glands appear normal. There is no enlarged cervical adenopathy noted. The airway appears patent. The thyroid gland appears within normal limits. The lung apices appear within normal limits. Impression: 1. Essentially negative CT angiogram of the neck with contrast. ACT 112: Negative or not required by law. Electronically signed by: Thiago Simmons M.D. 12/23/2021 11:22 AM Discharge Plan Visit Data Chief Complaint: TIA Symptoms Stated Complaint: LEFT ARM WEAK,CONFUSION,MINI STROKE #2?? ED Provider: Narciso Suggs Discharge Problem: Weakness of left upper extremity, Impairment of balance, Hypophosphatemia Patient Disposition: Admitted As Inpatient Discharge Instructions Interventions: ED Discharge Assessment Last Done: 12/23/21 13:55
--- NOTE | 2021-12-23 12:58 | History & Physical Report ---
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 - MRI ordered. - Echo in a.m. - CBC, BMP, HbA1c, lipid panel in a.m - PT, OT to evaluate in a.m. - CTA of head and neck as above, no significant stenosis. - Telemetry for 24 hours, evaluate for episodes of atrial fibrillation. - Neurochecks Q4h. - On ASA 81 mg daily, will add on Plavix 75 mg daily. (2) Hypertension: Plan: - Continue losartan 50 mg daily. (3) Hyperlipidemia: Plan: - Change pravastatin 20 mg daily to atorvastatin 40 mg daily. (4) Arthritis: Plan: - Tylenol 650 gm q4h prn. (5) Anxiety: Plan: - Continue Lexapro 15 mg daily. Plan - Obs med/tele. - SCDs, Heparin for VTE ppx. - DNR/DNI. History of Present Illness Chief Complaint: LUE weakness, difficulty ambulating x 1 day Primary Care Provider: Epifanio Herman MD Lesli Goodwin is an 81-year-old female with past medical history significant for hypertension, hyperlipidemia, anxiety, insomnia, osteopenia, vitamin D deficiency, and arthritis who presents today for evaluation of left arm weakness. This occurred two days ago while she was in [place] on a walk. She had no use in her left arm as it felt heavy and had to use her right arm to maneuver it. This was also associated with unsteady gait, she notes while she was walking she had a tendency to veer to the right. As she was in [place], she did not seek medical attention but returned home last evening and presented today for evaluation. Her symptoms had resolved within 24 hours of onset. She also relates an episode 1 month ago where she had a sudden onset of a migraine with pain in her b/l forehead and had difficulty speaking and notes her language was very garbled. This lasted for 3 hours before resolving and she has not had recurrence of this. She did not seek out medical attention at that time as she was going to [place] within the week and did not have time for an appointment. In ED, vital signs wnl and stable. Labs largely unremarkable. 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 Neck CTA with minimal calcification in carotid bulbs, otherwise unremarkable. CXR unremarkable. Allergies Allergy/AdvReac Type Severity Reaction Status Date / Time pollen extracts Allergy Unknown Verified 08/29/21 10:28 Home Medications Medication Instructions Recorded Confirmed Type aspirin 81 mg tablet 81 mg PO DAILY 01/17/19 10/30/21 History cholecalciferol (vitamin D3) 25 1,000 units PO BID 01/17/19 10/30/21 History mcg (1,000 unit) capsule cyanocobalamin (vitamin B-12) 3,000 mcg sublingual DAILY 01/17/19 10/30/21 History 3,000 mcg sublingual tablet naproxen sodium 220 mg tablet 220 mg PO UD PRN pain 01/17/19 10/30/21 History nitroglycerin 0.4 mg sublingual 0.4 mg sublingual Q5M PRN chest 09/25/20 10/30/21 Rx tablet pain #30 tabs fluticasone propionate 50 1 spray intranasal BID #1 g 01/07/21 10/30/21 Rx mcg/actuation nasal spray,suspension losartan 50 mg tablet 50 mg PO DAILY #90 tabs 06/03/21 10/30/21 Rx pravastatin 20 mg tablet 20 mg PO DAILY #90 tabs 06/03/21 10/30/21 Rx escitalopram oxalate 10 mg tablet 15 mg PO DAILY #135 tabs 07/01/21 10/30/21 Rx zolpidem 5 mg tablet 5 mg PO DAILY #90 tabs 09/30/21 10/30/21 Rx Past Med/Surg History Medical History (Updated 12/23/21 @ 13:39 by Vera Avila PA-C) Anxiety Greater trochanteric bursitis of right hip History of actinic keratosis History of diverticulosis History of gross hematuria Hyperlipidemia Hypertension S/P extracorporeal shock wave therapy TIA (transient ischemic attack) Surgical History H/O colonoscopy H/O dilation and curettage H/O shoulder surgery H/O wisdom tooth extraction H/O: section History of excision of lesion History of tonsillectomy and adenoidectomy History of tubal ligation Family History Mother Breast cancer Stroke Grandmother Colon cancer Sister Ovarian cancer Father CHF (congestive heart failure) Denies family history of Prostate cancer Myocardial infarction Social History Smoking Status: Never smoker packs per day: 0.5; Years Smoked: 13; Second Hand Exposure: No; Hx Alcohol Use: Yes Alcohol type: wine Hx Substance Use: No Preferred Language: [place] Visual Impairment: No Limitations Hearing Ability: Normal marital status: / Current Living Situation: Alone current occupational status: retired Feels Safe at Home: Yes Childhood Exposure to Second-Hand Smoke: No Dental Care, Regularly: Yes Physical Activity Frequency: 3-4 Times per Week Seatbelt Use: always Sunscreen Use: Yes Review of Systems Review of Systems: Constitutional: No fever/chills, weakness, fatigue, myalgias, anorexia, night sweats Eyes: No diplopia, no worsening or blurred vision ENT: normal hearing, no trouble swallowing Respiratory: No cough, sputum, dyspnea at rest or on exertion Cardiovascular: No chest pain, tightness or palpitations Abdomen: No pain, nausea, vomiting, diarrhea or constipation : Denies dysuria, hematuria, increased urgency/frequency, urinary retention Musculoskeletal: No joint pain, calf pain, swelling Neurologic: LUE weakness 2 days ago, difficulty ambulating, resolved; complains of b/l LE weakness/pain; no numbness/tingling Psychiatric: No anxiety or depression Skin: No rash or itch Physical Exam Physical Exam: General: awake, alert, no apparent distress Head: Normocephalic, atraumatic ENT: PERRL, EOMI, no pharyngeal exudate, mucous membranes moist Chest: Clear to auscultation, on room air, no adventitious breath sounds Cardiac: Regular rate and rhythm, no murmur, no JVD, normal peripheral pulses, good capillary refill Abdominal: NABS x 4 quadrants, soft, nontender to palpation, no rebound, guarding or tenderness Extremities: Normal inspection, no peripheral edema or erythema, calfs nontender to palpation Psych: Normal mood and affect Neuro: AAO x 3, strength intact bilaterally and rated 5/5, no motor deficits, speech is clear, no peripheral sensory deficits Skin: no rash or erythema Results & Data Results & Data ([facility]) Vital Signs (Past 12 Hours) Vital Signs Temp Pulse Resp BP Pulse Ox O2 Del Method 12/23/21 10:30 73 20 95 12/23/21 10:30 122/78 12/23/21 10:15 147/70 H 12/23/21 10:15 77 15 12/23/21 09:38 82 20 97 Room Air 12/23/21 09:33 36.9 C 94 H 18 121/79 97 Room Air Laboratory Results Abnormal lab results 12/23/21 12/23/21 Range/Units 09:55 09:55 RBC 3.78 L (3.93-5.22) M/uL RDW Std Deviation 50.0 H (36.4-46.3) fL Lymph # (Auto) 0.88 L (1.2-3.4) K/uL Immature Gran # (Auto) 0.03 H (0.00-0.02) K/uL Chloride 110 H (98-107) mmol/L BUN/Creatinine Ratio 23.1 H (10-20) Glucose 114 H (70-99(Fasting)) mg/dl Phosphorus 2.1 L (2.5-4.9) mg/dl Diagnostic Findings Chest X-Ray 12/23/21 09:38 XR chest 1V portable CLINICAL HISTORY: Chest Pain TECHNIQUE: Single frontal radiograph of the chest was obtained. Comparison: None available at the time of this dictation. FINDINGS: No lines and tubes are seen. The cardiomediastinal silhouette is normal. The lungs are clear. No evidence of pleural effusion or pneumothorax. IMPRESSION: No acute chest disease. ACT 112: Negative or not required by law. Electronically signed by: Jim Huerta M.D. 12/23/2021 10:[address] 12/23/21 10:[address] CT DOSE: 988.58 mGy.cm HISTORY: Right facial droop, left upper extremity weakness/ataxia TECHNIQUE: Multiaxial CT images of the head were performed without the use of intravenous contrast. Automated exposure control was utilized for this study. A dose lowering technique was utilized adhering to the principles of ALARA. Comparison: None. Findings: The paranasal sinuses and mastoid air cells are clear. The calvarium and skull base are intact. There is no mass, hematoma, midline shift, acute infarct. White matter hypodensity is nonspecific but suggestive of microvascular ischemic change. The ventricles and sulci demonstrate mild age-related involutional changes. Impression: No acute intracranial abnormality. Atrophy and microvascular ischemic changes. ACT 112: Negative or not required by law. Electronically signed by: Devan Huang M.D. 12/23/2021 11:19 AM Head CTA 12/23/21 10:18 HEAD CTA HISTORY: Right facial droop, left upper extremity weakness/ataxia TECHNIQUE: Multiaxial CT images of the head were following the intravenous administration of contrast to evaluate the major cerebral vessels. Maximum in tensity projection images were also obtained. A dose lowering technique was utilized adhering to the principles of ALARA. COMPARISON: None. FINDINGS: There is no mass, hematoma, midline shift, or acute infarct. Visualized intracranial internal carotid arteries, distal vertebral arteries, and basilar artery are widely patent. There is no significant stenosis or occlusion seen within the bilateral ACAs, MCAs, or rodding anode worker. Hypoplastic distal vertebral arteries and basilar artery. Bilateral posterior circulations are noted. These are considered to be normal variants. The major dural venous sinuses are patent. 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 IMPRESSION: 1. No significant stenosis or occlusion within the lummi of Dash. 2. 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 ACT 112: Negative or not required by law. Electronically signed by: Devan Huang M.D. 12/23/2021 11:23 AM Neck CTA 12/23/21 10:18 CT angio neck with con CLINICAL HISTORY: Right facial droop, LUE weakness/ataxia COMPARISON STUDY: No previous studies for comparison. CT DOSE: TECHNIQUE: CT Angio of the neck was performed.followed by image post processing with coronal, and sagittal MIP reformats.. Stenosis assessment by NASCET criteria. Contrast Volume: Optiray 320, 120 ml FINDINGS: Vascular findings: Right common carotid artery: Patent without significant stenosis. There is very minimal atherosclerotic calcification of the carotid bulb. Right internal carotid artery: Patent without significant stenosis. Right vertebral artery: Patent without significant stenosis. The right vertebral artery is dominant when compared to the left. Left common carotid artery: Patent without significant stenosis. There is very minimal atherosclerotic calcification of the carotid bulb. Left internal carotid artery: Patent without significant stenosis. Left vertebral artery: Patent without significant stenosis. Nonvascular findings: The parotid and submandibular salivary glands appear normal. There is no enlarged cervical adenopathy noted. The airway appears patent. The thyroid gland appears within normal limits. The lung apices appear within normal limits. Impression: 1. Essentially negative CT angiogram of the neck with contrast. ACT 112: Negative or not required by law. Electronically signed by: Thiago Simmons M.D. 12/23/2021 11:22 AM ECG Additional Comments: Normal sinus rhythm Normal ECG When compared with ECG of 08-OCT-2017 11:50, No significant change was found. Code Status & VTE Plan Code Status DNR/DNI. Supervising Physician Co-Signing Physician Notes Patient seen and examined with DANILO. Agree with her note above. This is a very nice 81-year-old female presents today after complaining of left upper extremity weakness. This happened approximately 48 hours prior to admission and is almost completely resolved. She also relates an episode of expressive aphasia that lasted approximately 3 hours and was self-limited, although this had been over a month ago and she did not seek medical attention at that time. On exam the patient does not have any significant neurological deficits, most notably in the left upper extremity. Speech is fluid. Cranial nerves are intact. Plan will be to place in monitored observation for further neurologic work-up. This includes 2D echo and MRI. Patient is already on a low-dose aspirin and I did add clopidogrel 75 mg daily. She is also on pravastatin, I changes to atorvastatin 40 mg daily. Follow laboratory work including hemoglobin A1c and fasting lipids. PT/OT evaluation. PG Care Time/CCT Total # of Minutes Spent Total Time Spent with Patient: Total time spent is greater than 50% in coordination of care (as documented) at patient's floor/unit and/or counseling patient: Coding Level of Care Code 37571 Initial Inpt Care Lvl 2 Diagnoses TIA (transient ischemic attack) G45.9 Hypertension I10 Hyperlipidemia E78.5 Arthritis M19.90 Anxiety F41.9
--- NOTE | 2021-12-23 12:59 | Electrocardiogram Report ---
Test Reason : Blood Pressure : / mmHG Vent. Rate : 075 BPM Atrial Rate : 075 BPM P-R Int : 174 ms QRS Dur : 086 ms QT Int : 382 ms P-R-T Axes : 015 017 037 degrees QTc Int : 426 ms Normal sinus rhythm Normal ECG When compared with ECG of 08-OCT-2017 11:50, No significant change was found Confirmed by Epifanio Byrd ([id number]) on 12/23/2021 12:59:23 PM Referred By: Confirmed By:Epifanio Byrd
[2021-12-23] MEDS ORDERED: ONDANSETRON INJ 2 MG/ML 2 ML VIAL IV PRN (14:23)
[2021-12-23] MEDS ORDERED: PHARMACIST DISCHARGE MED REC CONSULT PRN (14:23)
[2021-12-23] MEDS: HEPARIN SOD 5,000 UNIT/0.5 ML VIAL SQ SCH ×2 (15:31→20:57)
[2021-12-23] MEDS ORDERED: MELATONIN 3 MG TAB PO PRN (21:55)
[2021-12-23] MEDS: ACETAMINOPHEN 325 MG TAB PO PRN (22:42)
[2021-12-24] MEDS: HEPARIN SOD 5,000 UNIT/0.5 ML VIAL SQ SCH ×2 (06:03→14:57)
[2021-12-24 06:59] LABS: Basophils # (auto) 0.03 K/uL (0-0.2); Basophils % (auto) 0.7 %; Eosinophils # (auto) 0.07 K/uL (0-0.50); Eosinophils % (auto) 1.7 %; Hematocrit (blood only) 31.9 % (34.1-44.9); Hemoglobin 10.5 g/dl (12.0-16.0); Immature Granulocytes # (auto) 0.02 K/uL (0.00-0.02); Immature Granulocytes % (auto) 0.5 %; Lymphocytes # (auto) 1.02 K/uL (1.2-3.4); Lymphocytes % (auto) 24.8 %; Mean Corpuscular Hgb Conc 32.9 g/dL (32.0-36.0); Mean Corpuscular Volume 97.3 fL (80.0-100.0); Mean Platelet Volume 9.4 fL (9.4-12.3); Monocytes # (auto) 0.43 K/uL (0.24-0.82); Monocytes % (auto) 10.4 %; Neutrophils # (auto) 2.55 K/uL (1.4-6.5); Neutrophils % (auto) 61.9 %; Platelet Count 215 K/uL (130-400); RDW Coefficient of Variation 13.8 % (11.5-14.5); RDW Standard Deviation 48.8 fL (36.4-46.3); Red Blood Count 3.28 M/uL (3.93-5.22); White Blood Count 4.12 K/ul (4.8-10.8)
[2021-12-24 07:21] LABS: BUN Creatinine Ratio 21.7 (10-20); Calcium 8.9 mg/dl (8.5-10.1); Chol HDL Ratio 2.8 (0-5); Creatinine Clr Calc Pharmacy 55.1 ml/min; Est GFR (Non-African American) 81.1 ml/min; Magnesium 1.8 mg/dl (1.7-2.4); Potassium 3.9 mmol/L (3.5-5.1)
[2021-12-24 07:51] LABS: Estimated Average Glucose 108 mg/dl; Hemoglobin A1C 5.4 % (4.5-5.6)
--- NOTE | 2021-12-24 08:27 | Hospitalist Progress Note ---
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 - MRI results pending - Echo pending - HbA1c, lipid panel hdl 54 ldl 73 - PT, OT to evaluate in a.m. - On ASA 81 mg daily, will add on Plavix 75 mg daily. (2) Hypertension: Plan: - Continue losartan 50 mg daily. (3) Hyperlipidemia: Plan: - Change pravastatin 20 mg daily to atorvastatin 40 mg daily. (4) Arthritis: Plan: - Tylenol 650 gm q4h prn. (5) Anxiety: Plan: - Continue Lexapro 15 mg daily. Plan - SCDs, Heparin for VTE ppx. - DNR/DNI. Admission and Anticipated Discharge Date Admission Date: December 23, 2021 Results & Data Results & Data ([facility]) Vital Signs (Past 12 Hours) Vital Signs Temp Pulse Pulse Resp BP Pulse Ox O2 Del Method 12/24/21 07:44 Room Air 12/24/21 07:34 98.2 F 66 16 125/72 96 Room Air 12/24/21 06:45 99.0 F 67 20 126/58 L 95 Room Air 12/24/21 03:00 98.4 F 67 18 113/67 94 Room Air 12/24/21 02:00 68 12/23/21 23:00 97.7 F 69 20 168/73 H 96 Room Air PG Care Time/CCT Total # of Minutes Spent Total Time Spent with Patient: Total time spent is greater than 50% in coordination of care (as documented) at patient's floor/unit and/or counseling patient: Coding Diagnoses TIA (transient ischemic attack) G45.9 Hypertension I10 Hyperlipidemia E78.5 Arthritis M19.90 Anxiety F41.9
--- NOTE | 2021-12-24 08:49 | Magnetic Resonance Report ---
MR brain wo con CLINICAL HISTORY: TIA. Right facial weakness/facial droop. Left upper extremity weakness and diffic ulty ambulating for 2 days. COMPARISON STUDY: CT brain from 12/23/2021 TECHNIQUE: Multiplanar multisequence images of the Brain were performed without IV contrast. Diffusi on weighted imaging and ADC mapping was also performed. FINDINGS: Extra-axial space: There is no evidence for a subdural hematoma, There are no extra-axial fluid christy ections. Ventricles and cisterns: The ventricles are mildly dilated bilaterally. There is no evidence for mid line shift or mass effect. Parenchyma: There is evidence for an acute small vessel infarct. Small acute diffusion abnormalities are noted on diffusion weighted imaging in the high right parietal lobe. These are seen on images 20 and 21. No other evidence for acute infarct is seen. There is mild cerebral cortical atrophy present. There is bright signal seen on T2 and FLAIR weighted sequences within the centrum semiovale and periventricular white matter characteristic of remote sma ll vessel disease. The sulci and gyri appear normal without effacement. The midline structures are un remarkable. The posterior fossa structures appear normal. There is no evidence for mass lesion. Osseous structures: The paranasal sinuses are well aerated. There is evidence for asymmetric mucosal thickening involving the mastoid air cells on the right when compared to the left. Soft tissues: No focal soft tissue abnormalities are identified. IMPRESSION: 1. Small acute small vessel infarcts within the high right parietal lobe as seen on diffusion-weighte d imaging. 2. Mild cerebral cortical atrophy and remote small vessel disease. 3. Mild chronic right mastoiditis. ACT 112: Negative or not required by law. Electronically signed by: Thiago Simmons M.D. 12/24/2021 8:47 AM
[2021-12-24] MEDS ORDERED: ESCITALOPRAM OXALATE 10 MG TAB PO SCH (09:00)
[2021-12-24] MEDS ORDERED: CLOPIDOGREL BISULFATE 75 MG TAB PO SCH (09:00)
[2021-12-24] MEDS ORDERED: LOSARTAN POTASSIUM 50 MG TAB PO SCH (09:00)
[2021-12-24] MEDS ORDERED: ASPIRIN 81 MG ECTAB PO SCH (09:00)
[2021-12-24] MEDS ORDERED: ATORVASTATIN 40 MG TAB PO SCH (09:00)
[2021-12-24] MEDS: ACETAMINOPHEN 325 MG TAB PO PRN (13:25)
--- NOTE | 2021-12-24 15:46 | XCELERA ---
[id number]
[2021-12-24] MEDS ORDERED: STROKE PATIENT DISCHARGE STA (15:50)
--- NOTE | 2021-12-24 16:26 | Pharmacy Report ---
Pharmacist Stroke Counseling - Date of Service December 24, 2021 - Scope: Pharmacy has been consulted to provide medication discharge counseling for this patient admitted with ischemic stroke as per the Pharmacist Discharge Counseling for Stroke Patients Protocol. - Medications on Discharge: Home Medications Medication Instructions Recorded Confirmed aspirin 81 mg tablet 81 mg PO DAILY 01/17/19 10/30/21 cholecalciferol (vitamin D3) 25 1,000 units PO BID 01/17/19 10/30/21 mcg (1,000 unit) capsule cyanocobalamin (vitamin B-12) 3,000 mcg sublingual DAILY 01/17/19 10/30/21 3,000 mcg sublingual tablet naproxen sodium 220 mg tablet 220 mg PO UD PRN pain 01/17/19 10/30/21 New Rx's Medication Instructions Recorded nitroglycerin 0.4 mg sublingual 0.4 mg sublingual Q5M PRN chest 09/25/20 tablet pain #30 tabs fluticasone propionate 50 1 spray intranasal BID #1 g 01/07/21 mcg/actuation nasal spray,suspension losartan 50 mg tablet 50 mg PO DAILY #90 tabs 06/03/21 pravastatin 20 mg tablet 20 mg PO DAILY #90 tabs 06/03/21 escitalopram oxalate 10 mg tablet 15 mg PO DAILY #135 tabs 07/01/21 zolpidem 5 mg tablet 5 mg PO DAILY #90 tabs 09/30/21 Pharmacist Discharge Consult 1 ea Not Applicable UD PRN stroke 12/24/21 [Pharmacist Discharge Med Rec #1 unit Consult] atorvastatin 40 mg tablet 40 mg PO QAM #30 tabs 12/24/21 clopidogrel 75 mg tablet 75 mg PO QAM #30 tabs 12/24/21 - Action: The above medications, specifically ones for stroke treatment/prophylaxis, have been reviewed in detail with the patient and/or patient event sales representative(s) prior to discharge. This includes indication, common adverse reactions, drug interactions, and medication administration. Medication counseling has been employed using the teach-back method to ensure understanding. - Outcome: The patient and/or patient event sales representative(s) have demonstrated understanding of the medications. Additional comments: * Spoke with patient via phone prior to discharge to review medications and changes * Patient was aware that pravastatin has been D/C'd and replaced with atorvastatin. Explained that this change is to help reduce her risk for recurrent stroke as atorvastatin is much more potent. * Patient says she was told to take Plavix with aspirin for 30 days; advised to f/u with Cardiology/Neurology/PCP. She is aware to monitor for bleeding/bruising since she is on dual antiplatelet therapy. * She has actually been taking naproxen at least once daily; explained this is not recommended as NSAID's incr' risk for bleeding/bruising with anti- platelets and can also incr' BP and cause renal issues. She agrees to stop for now and discuss with PCP options for chronic pain management. She can use Tylenol prn for now. Thank you for allowing pharmacy to be involved in the care of this patient. Please call [phone] with any additional questions
--- NOTE | 2021-12-24 18:17 | Discharge Summary ---
Date of Service December 24, 2021 Admission HPI Per Admitting Provider Lesli Goodwin is an 81-year-old female with past medical history significant for hypertension, hyperlipidemia, anxiety, insomnia, osteopenia, vitamin D deficiency, and arthritis who presents today for evaluation of left arm weakness. This occurred two days ago while she was in [place] on a walk. She had no use in her left arm as it felt heavy and had to use her right arm to maneuver it. This was also associated with unsteady gait, she notes while she was walking she had a tendency to veer to the right. As she was in [place], she did not seek medical attention but returned home last evening and presented today for evaluation. Her symptoms had resolved within 24 hours of onset. She also relates an episode 1 month ago where she had a sudden onset of a migraine with pain in her b/l forehead and had difficulty speaking and notes her language was very garbled. This lasted for 3 hours before resolving and she has not had recurrence of this. She did not seek out medical attention at that time as she was going to [place] within the week and did not have time for an appointment. In ED, vital signs wnl and stable. Labs largely unremarkable. 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 Neck CTA with minimal calcification in carotid bulbs, otherwise unremarkable. CXR unremarkable. Principal Diagnosis right parietal stroke patent foramen ovale Discharge Exam The patient appeared stable, patient has baseline right facial droop which is been present for some time Vital signs as documented. Lungs are clear to auscultation and appear unlabored Cardiac exam, Rhythm is regular.. No murmurs, patient states she is a history of a murmur but I cannot auscultate any today Abdominal exam reveals normal bowel sounds, soft non tender, no masses Extremities are nonedematous and both pedal pulses are normal. Arm strength is returned to normal Neurologic exam is alert and oriented, no focal loss of strength or sensation and facial droop is noted Skin is without bruises or rashes Psychologically is without concerns for anxiety or depression. Discharge Data Allergies Allergy/AdvReac Type Severity Reaction Status Date / Time pollen extracts Allergy Unknown Verified 08/29/21 10:28 Consultations 12/23/21 12:21 ED Decision to Admit Stat Ordered Studies Chest X-Ray 12/23/21 09:38 XR chest 1V portable CLINICAL HISTORY: Chest Pain TECHNIQUE: Single frontal radiograph of the chest was obtained. Comparison: None available at the time of this dictation. FINDINGS: No lines and tubes are seen. The cardiomediastinal silhouette is normal. The lungs are clear. No evidence of pleural effusion or pneumothorax. IMPRESSION: No acute chest disease. ACT 112: Negative or not required by law. Electronically signed by: Jim Huerta M.D. 12/23/2021 10:[address] 12/23/21 10:[address] DOSE: 988.58 mGy.cm HISTORY: Right facial droop, left upper extremity weakness/ataxia TECHNIQUE: Multiaxial CT images of the head were performed without the use of intravenous contrast. Automated exposure control was utilized for this study. A dose lowering technique was utilized adhering to the principles of ALARA. Comparison: None. Findings: The paranasal sinuses and mastoid air cells are clear. The calvarium and skull base are intact. There is no mass, hematoma, midline shift, acute infarct. White matter hypodensity is nonspecific but suggestive of microvascular ischemic change. The ventricles and sulci demonstrate mild age-related involutional changes. Impression: No acute intracranial abnormality. Atrophy and microvascular ischemic changes. ACT 112: Negative or not required by law. Electronically signed by: Devan Huang M.D. 12/23/2021 11:19 AM Head CTA 12/23/21 10:18 HEAD CTA HISTORY: Right facial droop, left upper extremity weakness/ataxia TECHNIQUE: Multiaxial CT images of the head were following the intravenous administration of contrast to evaluate the major cerebral vessels. Maximum intensity projection images were also obtained. A dose lowering technique was utilized adhering to the principles of ALARA. COMPARISON: None. FINDINGS: There is no mass, hematoma, midline shift, or acute infarct. Visualized intracranial internal carotid arteries, distal vertebral arteries, and basilar artery are widely patent. There is no significant stenosis or occlusion seen within the bilateral ACAs, MCAs, or tank builder and erector. Hypoplastic distal vertebral arteries and basilar artery. Bilateral posterior circulations are noted. These are considered to be normal variants. The major dural venous sinuses are patent. 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 IMPRESSION: 1. No significant stenosis or occlusion within the [place] of [place]. 2. 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 ACT 112: Negative or not required by law. Electronically signed by: Devan Huang M.D. 12/23/2021 11:23 AM Neck CTA 12/23/21 10:18 CT angio neck with con CLINICAL HISTORY: Right facial droop, LUE weakness/ataxia COMPARISON STUDY: No previous studies for comparison. CT DOSE: TECHNIQUE: CT Angio of the neck was performed.followed by image post processing with coronal, and sagittal MIP reformats.. Stenosis assessment by NASCET criteria. Contrast Volume: Optiray 320, 120 ml FINDINGS: Vascular findings: Right common carotid artery: Patent without significant stenosis. There is very minimal atherosclerotic calcification of the carotid bulb. Right internal carotid artery: Patent without significant stenosis. Right vertebral artery: Patent without significant stenosis. The right vertebral artery is dominant when compared to the left. Left common carotid artery: Patent without significant stenosis. There is very minimal atherosclerotic calcification of the carotid bulb. Left internal carotid artery: Patent without significant stenosis. Left vertebral artery: Patent without significant stenosis. Nonvascular findings: The parotid and submandibular salivary glands appear normal. There is no enlarged cervical adenopathy noted. The airway appears patent. The thyroid gland appears within normal limits. The lung apices appear within normal limits. Impression: 1. Essentially negative CT angiogram of the neck with contrast. ACT 112: Negative or not required by law. Electronically signed by: Thiago Simmons M.D. 12/23/2021 11:22 AM Brain MRI 12/23/21 14:23 MR brain wo con CLINICAL HISTORY: TIA. Right facial weakness/facial droop. Left upper extremity weakness and difficulty ambulating for 2 days. COMPARISON STUDY: CT brain from 12/23/2021 TECHNIQUE: Multiplanar multisequence images of the Brain were performed without IV contrast. Diffusion weighted imaging and ADC mapping was also performed. FINDINGS: Extra-axial space: There is no evidence for a subdural hematoma, There are no extra-axial fluid collections. Ventricles and cisterns: The ventricles are mildly dilated bilaterally. There is no evidence for midline shift or mass effect. Parenchyma: There is evidence for an acute small vessel infarct. Small acute diffusion abnormalities are noted on diffusion weighted imaging in the high right parietal lobe. These are seen on images 20 and 21. No other evidence for acute infarct is seen. There is mild cerebral cortical atrophy present. There is bright signal seen on T2 and FLAIR weighted sequences within the centrum semiovale and periventricular white matter characteristic of remote small vessel disease. The sulci and gyri appear normal without effacement. The midline structures are unremarkable. The posterior fossa structures appear normal. There is no evidence for mass lesion. Osseous structures: The paranasal sinuses are well aerated. There is evidence for asymmetric mucosal thickening involving the mastoid air cells on the right when compared to the left. Soft tissues: No focal soft tissue abnormalities are identified. IMPRESSION: 1. Small acute small vessel infarcts within the high right parietal lobe as seen on diffusion-weighted imaging. 2. Mild cerebral cortical atrophy and remote small vessel disease. 3. Mild chronic right mastoiditis. ACT 112: Negative or not required by law. Electronically signed by: Thiago Simmons M.D. 12/24/2021 8:47 AM 12/23/21 10:18 CT angio head w con Stat CT angio neck with con Stat CT head/brain wo con Stat 12/23/21 14:23 MR brain wo con Routine Hospital Course (1) Acute CVA (cerebrovascular accident): Patient with acute parietal CVA. These were 2 small areas. The fact that her multiple Menkes to concern for embolic source. She does have a patent PFO as seen on echocardiography. Discussion of treatment with PFO and embolic stroke really revolves around the risk of venous thromboembolism. Patient has no significant symptoms or knowledge of venous thromboembolism. If she were to have a risk of such then formal anticoagulation will be started likely with discontinuation of aspirin and her being on Plavix plus a DOAC or warfarin. With reference to up-to-date source for stroke with PFO recommendations are dual antiplatelets at this time Patient had no embolic source seen within her heart however the patient will also be recommended for an outpatient atrial fibrillation cardiac event monitor to be performed to rule out paroxysmal atrial fibrillation as a source of embolic phenomena (2) Hypertension: Continues on losartan (3) Hyperlipidemia: Pravachol changed to atorvastatin for secondary risk prevention Plan Patient encouraged to follow-up with Dr. Pro Total Time Total Time Spent Total Time Spent (In Minutes): It required greater than 30 minutes to prepare this patient for discharge Discharge Plan Discharge Items Patient Disposition: Home - Self-Care Reason For Visit: LUE WEAKNESS Discharge Diagnosis: Right parietal stroke patient foramen ovale Activity: Resume your previous activity Non-emergency contact: Primary Care Provider Call non-emergency contact if: your symptoms worsen Follow-up/Referrals: Epifanio Herman MD [Primary Care Provider] - 01/09/22 11:00 am (Appointment with Aaliyah Blackmon PA-C) Diet: Heart Healthy Addtl Attending Provider Instructions: you suffered two small strokes, and there is evidence of a small opeining in your heart that could allow a blood clot to travel to your brain and cause these This is called a patient Foramen Ovale, and is can be a congenital issue, you should take both aspirin and plavix for this we will also subsitute a new medicine for your cholesterol to help reduce risk TheForamen Ovaleis an opening, similar to a small flap, between the top left and right chambers (atria) of the heart. Everyone is born with this opening, which is essential to the blood flow of the developing fetus. After , this opening generally seals itself closed within a few months as the heart begins its normal function of pumping blood on its own, no longer needing to receive oxygen from the mothers blood supply. In some individuals, the opening does not close. It remains open, which is called aPatent Foramen Ovale (PFO). This happens in about 25 percent of the population. There is no definitive cause as to why it happens, although some researchers believe genetics may play a role. In many cases, the PFO causes no problems and a person goes on to live a normal, healthy life. However, in some cases, a PFO has been linked to other health issues, such as ischemic stroke. I still think its a good idea to have a cardiac event monitor as an outpt, we will have the cardiology office contact you please also follow up with Dr Herman Pending Studies at Discharge: No Stand-Alone Forms: Medications to Prevent Stroke, My [facility] [employer], Smoking Cessation Medications and DC Order Prescriptions: New atorvastatin 40 mg Tablet 40 mg PO QAM Qty: 30 3RF clopidogrel 75 mg Tablet 75 mg PO QAM Qty: 30 0RF Pharmacist Discharge Consult [Pharmacist Discharge Med Rec Consult] 1 ea Not Applicable UD PRN (Reason: stroke) Qty: 1 1RF Continued fluticasone propionate 50 mcg/actuation spray,suspension 1 spray intranasal BID Qty: 1 3RF losartan 50 mg tablet 50 mg PO DAILY Qty: 90 3RF escitalopram oxalate 10 mg tablet 15 mg PO DAILY Qty: 135 3RF zolpidem 5 mg tablet 5 mg PO DAILY Qty: 90 0RF nitroglycerin 0.4 mg tablet, sublingual 0.4 mg SL Q5M PRN (Reason: chest pain) Qty: 30 0RF aspirin 81 mg tablet 81 mg PO DAILY cyanocobalamin (vitamin B-12) 3,000 mcg tablet, sublingual 3,000 mcg SL DAILY cholecalciferol (vitamin D3) 1,000 unit capsule 1,000 units PO BID Discontinued pravastatin 20 mg tablet 20 mg PO DAILY Qty: 90 3RF naproxen sodium 220 mg tablet 220 mg PO UD PRN (Reason: pain) Discharge Orders: Discharge Order (Routine); Ordered 12/24/21 Ordered By: Ayan Nichole/Other Patient Handouts: Stroke and Heart Disease, Stroke: Self-Care Admission Data Admit Date/Time: 12/23/21 13:21 Attending Provider: Ayan Riley Admit Provider: Tan Bruner Primary Care Provider: Epifanio Herman Other Providers: Tan Bruner Other Interventions: Discharge Summary Assessment (RN) Last Done: 12/24/21 16:25 Coding Level of Care Code D/C DAY MANAGEMENT >30 MINS Diagnoses Acute CVA (cerebrovascular accident) I63.9 Hypertension I10 Hyperlipidemia E78.5
== END 2021-12-24 17:07 | disposition home or self-care (01) ==
LOC: 2N 09:29 → ED 09:29 → SUATTDRO 13:21 → 2N 13:55
DX: Z91.048 Other nonmedicinal substance allergy status; M19.90 Unspecified osteoarthritis, unspecified site; Z79.82 Long term (current) use of aspirin; I10 Essential (primary) hypertension; E78.5 Hyperlipidemia, unspecified; I63.9 Cerebral infarction, unspecified; Z66 Do not resuscitate; F41.9 Anxiety disorder, unspecified; Z79.899 Other long term (current) drug therapy